=== PATIENT | male | born 1960 | race African-American/Black ===

== ENCOUNTER 2021-11-15 13:15 | Emergency (ER) | payer MEDICAID ==
[~2021-11-15] VITALS: Ht 182.9 cm; Wt 82.0 kg
[2021-11-15] MEDS ORDERED: WARFARIN (13:24)
[2021-11-15] MEDS ORDERED: ALBUTEROL (0.083%) 2.5MG/3ML NEB HHN STA (13:44)
[2021-11-15] MEDS ORDERED: ACETAMINOPHEN 325MG TABLET PO STA (13:44)
[2021-11-15] MEDS ORDERED: PREDNISONE 20MG TABLET PO STA (13:44)
[2021-11-15] MEDS ORDERED: IPRATROPIUM BROMIDE (0.02%) 0.5MG/2.5ML NEB HHN STA (13:44)
[2021-11-15] MEDS ORDERED: ASPIRIN 325MG EC TABLET PO ONE (14:00)
[2021-11-15 14:14] LABS: BASOPHILS % 0.2 % (0.0-2.0); EOSINOPHILS % 0.1 % (0.0-5.0); HEMATOCRIT. 43.5 % (42.0-52.0); HEMOGLOBIN. 14.6 g/dL (14.0-18.0); LYMPHOCYTES % 10.4 % (20.0-50.0); MEAN CORPUSCULAR HEMOGLOBIN 28.9 pg (28.0-32.0); MEAN CORPUSCULAR VOLUME 85.7 fL (80.0-94.0); MEAN PLATELET VOLUME 8.9 fl (7.4-10.4); MONOCYTES % 3.4 % (2.0-8.0); NEUTROPHILS % 85.9 % (40.0-76.0); PLATELET 178 x1000/uL (130-400); RED BLOOD CELL COUNT 5.07 mill/uL (4.7-6.1); RED CELL DISTRIBUTION WIDTH 13.5 % (11.6-14.6)
[2021-11-15 14:19] LABS: CHLORIDE 99 mEq/L (98-107)
[2021-11-15] MEDS ORDERED: CEFTRIAXONE 1 G PREMIX 50 ML IV NR (15:15)
[2021-11-15] MEDS ORDERED: IOHEXOL-350 100 ML BOTTLE ONE (15:31)
[2021-11-15] MEDS ORDERED: AZITHROMYCIN 500 MG in DEXT 5% WATER 250 ML IV SCH (16:00)
[2021-11-15] MEDS ORDERED: MORPHINE SULFATE 4 MG/ML CPJ (NOT FOR IM USE) IV NR (16:15)
[2021-11-15] MEDS ORDERED: AZITHROMYCIN 500MG/250ML 250 ML IV NR (16:45)
[2021-11-15 20:26] VITALS: BP 100/66
== END 2021-11-15 21:30 | disposition short-term general hospital (02) ==
LOC: ER 13:15
DX: J18.9 Pneumonia, unspecified organism (principal); Z20.822 Contact with and (suspected) exposure to COVID-19
CPT/HCPCS: 36415; 71045; 71275; 80053; 83880; 84484; 85025; 87426; 93005; 94640; 96365; 96367; 96375; 99285; C9803; J0456; J0696; J2270; J7512; Q9967; Z7610; J7060